=== PATIENT | female | born 1950 | race Caucasian/White ===

== ENCOUNTER → 2016-12-09 | Outpatient (CLI) | payer OTHER ==
[~2016-12-09] MED LIST: ADVIL PM CAPLE1 EACH PO; FAMOTIDINE40 MG PO; LORTAB PO; MELATONIN5 M2 PO; NORCO 5-325 TA1 EACH PO
== END ==
LOC: HEART 5 10:34
DX: J44.9 Chronic obstructive pulmonary disease, unspecified (principal)
CPT/HCPCS: 94010; 94729

== ENCOUNTER 2017-02-13 20:14 | Emergency (ER) | payer OTHER | END 2017-02-13 21:02 | disposition home or self-care (01) | LOC: ER1 20:14 | DX: Z20.811 Contact with and (suspected) exposure to meningococcus (principal); Z23 Encounter for immunization; Z90.49 Acquired absence of other specified parts of digestive tract | CPT/HCPCS: 99283 ==

== ENCOUNTER → 2020-10-30 | Outpatient (CLI) | payer MEDICARE ==
[~2020-10-30] MED LIST changes: +AMLODIPINE BESYL5 MG PO; +FISH OIL 1,0001 EAC1 PO; +HYDROCHLOROTHIA25 MG PO; +IMDUR ER TAB 3030 MG PO; +MELATONIN10 M2 PO; +NORCO 7.5-3251 EACH PO; +PROLIA INJ60 MG/1 ML SC; +PROTONIX40 MG PO; +ZETIA 10 MG TAB10 MG PO
== END ==
LOC: KOH-I 08:58
DX: M25.531 Pain in right wrist (principal)
CPT/HCPCS: 73110

== ENCOUNTER → 2020-12-02 | Outpatient (CLI) | payer MEDICARE | LOC: KOH-I 08:58 | DX: M25.531 Pain in right wrist (principal); M19.031 Primary osteoarthritis, right wrist | CPT/HCPCS: 73221 ==

== ENCOUNTER → 2021-01-13 | Outpatient (CLI) | payer MEDICARE | LOC: OPSV 12:37 | DX: M81.0 Age-related osteoporosis without current pathological fracture (principal) | CPT/HCPCS: 96372 ==

== ENCOUNTER → 2021-08-23 | Outpatient (CLI) | payer MEDICARE | LOC: KOH-I 10:02 | DX: R05.9 Cough, unspecified (principal); R10.9 Unspecified abdominal pain; R14.0 Abdominal distension (gaseous) | CPT/HCPCS: 71046; 74018 ==